=== PATIENT | female | born 1945 | race Caucasian/White ===

== ENCOUNTER 2016-11-27 11:49 | Day surgery (SDC) | payer MEDICARE, OTHER ==
[~2016-11-27 11:49] MED LIST: Lactated Ringers 1,000 ML IV SCH; Sodium Chloride 0.9% 10 ML Syringe FLUSH PRN
[2016-11-27] MEDS ORDERED: Midazolam 1 MG/ML 2 ML SDV ONE ×2 (13:01→13:05)
[2016-11-27] MEDS ORDERED: Propofol 200 MG/20 ML SDV ONE ×3 (13:02→13:50)
--- NOTE | 2016-11-27 13:05 | PCM.PN ---
- General Info Date of Service: 11/27/16 - Review of Systems Systems Review Comment:: 71-year-old female with a history of colon polyps referred for surveillance colonoscopy. She is done well since her last colonoscopy. She is medically stable to proceed today with no significant change in her health status since her last exam. I have discussed the proposed colonoscopy with the patient. She understands risks and agrees to proceed accepting these risks. - Patient Data Vitals - Most Recent: Last Vital Signs Temp 98.4 F 11/27/16 12:13 Pulse 57 L 11/27/16 12:13 Resp 20 11/27/16 12:13 BP 140/78 11/27/16 12:13 Pulse Ox 99 11/27/16 12:13 Weight - Most Recent: 93.894 kg Med Orders - Current: Current Medications Lactated Ringer's (Ringers, Lactated) 1,000 mls @ 125 mls/hr IV ASDIRECTED NATALIE Last Admin: 11/27/16 12:52 Dose: 125 mls/hr Sodium Chloride (Saline Flush) 10 ml FLUSH ASDIRECTED PRN PRN Reason: Keep Vein Open - Problem List Review Problem List Initiated/Reviewed/Updated: Yes - Assessment Assessment:: History of colon polyps - Plan Plan:: Colonoscopy
--- NOTE | 2016-11-27 14:02 | PCM.OPNOTE ---
- General Post-Op/Procedure Note Date of Surgery/Procedure: 11/27/16 Operative Procedure(s): Colonoscopy Findings: Mild Sigmoid Diverticulosis Pre Op Diagnosis: history of colon polyps Post-Op Diagnosis: Diverticulosis Anesthesia Technique: MAC Primary Surgeon: Renny Olson Pathology: none Output, Urine Amount: 0 EBL in mLs: 0 Complications: None Condition: Good Free Text/Narrative:: Intake & Output 11/26/16 11/27/16 11/27/16 22:59 06:59 14:59 Intake Total 500 Balance 500
[2016-11-27 14:26] VITALS: BP 159/94
--- NOTE | 2016-11-28 08:03 | OR ---
Date of Procedure: 11/27/2016 PREOPERATIVE DIAGNOSIS: History of colon polyps. POSTOPERATIVE DIAGNOSIS: Diverticulosis. OPERATION PERFORMED: Colonoscopy. INDICATIONS FOR SURGERY: This 71-year-old female with a known history of colon polyps, was referred today for surveillance colonoscopy. FINDINGS: No polyps were seen during today's exam. The patient does have a mild degree of sigmoid diverticulosis. It does not appear to be acutely inflamed, otherwise complicated. The remainder of the colon appears normal. PROCEDURE IN DETAIL: The patient was taken to the operating room. She was given intravenous sedation and with her in the left lateral decubitus position, digital rectal exam was performed showing no rectal masses. The Olympus colonoscope was inserted into the rectum. Retroflexed examination of the rectal canal was performed. The scope was then carefully advanced under direct visualization through the entire length of the colon until the cecum was reached. Cecal acquisition was confirmed by noting the normal internal cecal anatomy including the appendiceal orifice and ileocecal valve. The light was also noted to transilluminate the abdominal wall in the right lower quadrant. Reaching the cecum was somewhat difficult, it did require hand pressure, but was able to be safely accomplished. After examining the cecum, the scope was slowly withdrawn, sequentially re-examining the colonic segments until the entire colon and rectum had been fully examined. The scope was then removed and the patient was taken from the operating room in satisfactory condition. ESTIMATED BLOOD LOSS: Zero. COMPLICATIONS: None. PROGNOSIS: Good. NAYELI Olson MD /[id number]
== END 2016-11-27 14:55 | disposition home or self-care (01) ==
LOC: LL.SDS 11:49
PROVIDERS: ATTEND Surgery
DX: Z12.11 Encounter for screening for malignant neoplasm of colon (principal); K57.30 Diverticulosis of large intestine without perforation or abscess without bleeding; Z86.010 Personal history of colon polyps; I25.2 Old myocardial infarction; I10 Essential (primary) hypertension; E03.9 Hypothyroidism, unspecified; Z90.49 Acquired absence of other specified parts of digestive tract; Z90.710 Acquired absence of both cervix and uterus; Z98.890 Other specified postprocedural states; Z79.899 Other long term (current) drug therapy; Z72.0 Tobacco use; Z88.8 Allergy status to other drugs, medicaments and biological substances
CPT/HCPCS: G0121; J7120; 00810-QZ; J2250; J2704

== ENCOUNTER 2021-06-29 09:50 | Emergency (ER) | payer MEDICARE, OTHER ==
[2021-06-29 10:04] VITALS: BP 143/72; PULSE 68
== END 2021-06-29 11:00 | disposition home or self-care (01) ==
LOC: LL.ED 09:50
DX: N39.0 Urinary tract infection, site not specified (principal); I10 Essential (primary) hypertension; E03.9 Hypothyroidism, unspecified; E66.9 Obesity, unspecified; Z68.36 Body mass index [BMI] 36.0-36.9, adult; Z88.5 Allergy status to narcotic agent; Z79.899 Other long term (current) drug therapy; Z79.82 Long term (current) use of aspirin
CPT/HCPCS: 81001; 87086; 99283; 99284

== ENCOUNTER 2023-01-22 17:31 | Emergency (ER) | payer MEDICARE, OTHER ==
[2023-01-22 17:37] VITALS: BP 150/70; PULSE 65
== END 2023-01-22 18:08 | disposition home or self-care (01) ==
LOC: LL.ED 17:31
DX: M79.651 Pain in right thigh (principal); E03.9 Hypothyroidism, unspecified; E66.9 Obesity, unspecified; I10 Essential (primary) hypertension; Z79.899 Other long term (current) drug therapy; Z79.82 Long term (current) use of aspirin; Z88.5 Allergy status to narcotic agent
CPT/HCPCS: 99283; 99284

== ENCOUNTER 2024-07-30 12:36 | Emergency (ER) | payer MEDICARE, OTHER ==
[2024-07-30] MEDS ORDERED: Sodium Chloride 0.9% 10 ML Syringe FLUSH PRN (12:45)
[2024-07-30 13:08] LABS: BASOPHILS PERCENT AUTO 0.8 % (0.0-2.0); EOSINOPHILS PERCENT AUTO 1.9 % (0.0-5.0); HEMATOCRIT 42.6 % (34.0-46.0); HEMOGLOBIN 14.7 g/dL (11.7-15.5); IMMATURE GRAN PERCENT AUTO 0.3 % (0.0-0.4); LYMPHOCYTES PERCENT AUTO 28.3 % (10.0-50.0); MEAN CORPUSCULAR HGB CONC 34.5 g/dL (31.7-36.0); MEAN CORPUSCULAR VOLUME 92.6 fL (84.0-98.0); MONOCYTES PERCENT AUTO 4.3 % (2.0-14.0); NEUTROPHILS PERCENT AUTO 64.4 % (45.0-80.0); PLATELET COUNT,PLT 209 K/uL (150-350); WHITE BLOOD CELL COUNT,WBC 7.9 K/uL (4.0-10.2)
[2024-07-30 13:09] LABS: BASOPHILS ABSOLUTE AUTO 0.06 K/uL (0.00-0.20); EOSINOPHILS ABSOLUTE AUTO 0.15 K/uL (0.00-0.50); IMMATURE GRAN ABSOLUTE AUTO 0.02 10^3/uL (0.00-0.04); LYMPHOCYTES ABSOLUTE AUTO 2.23 K/uL (0.50-3.50); MONOCYTES ABSOLUTE AUTO 0.34 K/uL (0.00-1.00); NEUTROPHILS ABSOLUTE AUTO 5.09 K/uL (1.40-7.00)
[2024-07-30 13:25] LABS: ALBUMIN 3.2 g/dL (3.4-5.0); BILIRUBIN TOTAL 0.5 mg/dL (0.2-1.0); CALCIUM 9.2 mg/dL (8.5-10.1); CREATININE 0.96 mg/dL (0.51-1.17); EST CRCL DRUG DOSING (CG) 42.38 mL/min; POTASSIUM,K 3.5 mmol/L (3.5-5.1); PROTEIN TOTAL,TP 7.3 g/dL (6.4-8.2)
[2024-07-30 13:28] LABS: ANION GAP 10.5 meq/L (7-15)
[2024-07-30] MEDS: Meclizine 25 MG Tab PO ONE (13:37)
[2024-07-30] MEDS: Take Home: Meclizine HCl 25 MG, 6 Tab Pack PO ONE (13:54)
[2024-07-30 14:53] VITALS: BP 145/78; PULSE 64
== END 2024-07-30 14:22 | disposition home or self-care (01) ==
LOC: LL.ED 12:36
DX: R42 Dizziness and giddiness (principal); I10 Essential (primary) hypertension; E03.9 Hypothyroidism, unspecified; Z90.710 Acquired absence of both cervix and uterus; Z88.5 Allergy status to narcotic agent; Z88.1 Allergy status to other antibiotic agents; Z88.8 Allergy status to other drugs, medicaments and biological substances; Z79.82 Long term (current) use of aspirin; Z79.890 Hormone replacement therapy; Z79.899 Other long term (current) drug therapy
CPT/HCPCS: 36415; 80053; 83735; 83880; 84484; 85025; 85610; 93005; 99284; A9270-GY

== ENCOUNTER 2024-11-27 08:10 | Emergency (ER) | payer MEDICARE, OTHER ==
[2024-11-27 08:17] VITALS: BP 143/64; PULSE 70
== END 2024-11-27 09:28 | disposition home or self-care (01) ==
LOC: LL.ED 08:10
DX: M19.011 Primary osteoarthritis, right shoulder (principal); Z88.8 Allergy status to other drugs, medicaments and biological substances; Z88.5 Allergy status to narcotic agent; Z88.1 Allergy status to other antibiotic agents; Z79.82 Long term (current) use of aspirin; I10 Essential (primary) hypertension; E03.9 Hypothyroidism, unspecified; E66.9 Obesity, unspecified; Z79.890 Hormone replacement therapy; Z79.899 Other long term (current) drug therapy; Z90.710 Acquired absence of both cervix and uterus; Z96.611 Presence of right artificial shoulder joint
CPT/HCPCS: 73030-RT; 99283